=== PATIENT | male | born 1985 | race African-American/Black ===

== ENCOUNTER 2016-11-14 08:19 | Emergency (ER) | payer OTHER ==
[2016-11-14 08:40] LABS: AMYLASE 94 IU/L (1-118)
[2016-11-14 08:46] LABS: CHLORIDE 108 mEq/L (99-109); EOSINOPHIL (%) 1.7 % (0-5); EOSINOPHIL COUNT 0.2 K/uL (0-0.3); HEMATOCRIT 39.3 % (38.0-50.0); IMMATURE GRANULOCYTE (%) 0.2 % (0.0-0.7); LYMPHOCYTE COUNT 3.1 K/uL (1.0-2.8); MCH 30.7 PG (29.0-34.0); MCHC 33.3 G/DL (30.0-36.0); MEAN PLAT.VOLUME 9.7 uM^3 (9.0-12.4); MONOCYTE (%) 10.3 % (3-12); NEUTROPHIL (%) 54.2 % (45-76); PLATELET COUNT 247 K/uL (156-360); POTASSIUM 3.8 mEq/L (3.7-5.4); RBC DIS.WIDTH-CV 13.5 % (11.8-14.6); RBC DIS.WIDTH-SD 45.8 % (39-53); RED BLOOD COUNT 4.27 M/uL (4.00-5.50); SODIUM 142 mEq/L (136-147); WHITE BLOOD COUNT 9.2 K/uL (4.1-10.2)
[2016-11-14 08:47] LABS: GLUCOSE 96 mg/dL (70-99)
[2016-11-14 08:49] LABS: ANION GAP 7 MEQ/L (2-14); LIPASE 21 U/L (1.0-51.0)
[2016-11-14 08:52] LABS: GFR ESTIMATE (CALCULATED) > 59 mL/min/; UREA NITROGEN (BUN) 11 mg/dL (9-23)
[2016-11-14] MEDS ORDERED: TYLENOL WITH C1 EACH PO (09:59)
== END 2016-11-14 10:36 | disposition home or self-care (01) ==
LOC: TRA 08:19
PROVIDERS: Emergency Medicine
DX: S30.0XXA Contusion of lower back and pelvis, initial encounter (principal); S10.93XA Contusion of unspecified part of neck, initial encounter; V49.40XA Driver injured in collision with unspecified motor vehicles in traffic accident, initial encounter
CPT/HCPCS: 70450; 71260; 72125; 72129; 72132; 74177; 80048; 82150; 83690; 85025; 99281; 99285